=== PATIENT | male | born 1985 | race Caucasian/White ===

== ENCOUNTER 2018-01-16 11:26 | Emergency (ER) | payer OTHER ==
[~2018-01-16] VITALS: Ht 172.7 cm; Wt 68.5 kg
[2018-01-16] MEDS ORDERED: MAXITROL EYE DRO5 ML OP (13:42)
== END 2018-01-16 13:41 | disposition home or self-care (01) ==
LOC: ER 11:26
DX: H60.8X2 Other otitis externa, left ear (principal)